=== PATIENT | female | born 1995 | race Caucasian/White ===

== ENCOUNTER 2017-12-07 09:51 | Day surgery (SDC) | payer BC ==
[~2017-12-07] VITALS: Ht 162.6 cm; Wt 87.0 kg
[~2017-12-07 09:51] MED LIST: KARIVA 28 DAY1 EACH PO; OMEPRAZOLE40 M1 PO
[2017-12-07 10:32] VITALS: BP 128/60
[2017-12-07] MEDS ORDERED: OXAYDO5 MG PO (12:42)
[2017-12-07 13:42] VITALS: BP 117/72
[2017-12-07 14:42] VITALS: BP 117/73
== END 2017-12-07 14:50 | disposition home or self-care (01) ==
LOC: SDC 09:51
PROC: 0FT44ZZ Resection of Gallbladder, Percutaneous Endoscopic Approach (ICD-10-PCS; principal; 2017-12-07)
DX: K80.10 Calculus of gallbladder with chronic cholecystitis without obstruction (principal); K59.01 Slow transit constipation; K21.9 Gastro-esophageal reflux disease without esophagitis; G43.909 Migraine, unspecified, not intractable, without status migrainosus; E66.9 Obesity, unspecified; Z68.32 Body mass index [BMI] 32.0-32.9, adult
CPT/HCPCS: 88304; J1100; J1170; J1885; J2250; J2405; J2710; J2765; J3010; J7643; S0074